=== PATIENT | male | born 1965 | race American Indian/Alaskan Native ===

== ENCOUNTER 2021-12-30 07:47 | Emergency (ER) | payer SELFPAY ==
[2021-12-30 08:12] LABS: Hematocrit 41.7 % (35.5-45.6); Hemoglobin 14.2 gm/dl (11.8-15.2); Mean Corpuscular HGB Conc 34 % (32-34); Mean Corpuscular Volume 101 fl (84-94); Platelet Count 179 K/mm3 (140-440); Red Blood Count 4.14 M/mm3 (3.65-5.03)
[2021-12-30 09:23] LABS: Calcium 9.6 mg/dL (8.4-10.2)
[2021-12-30] MEDS ORDERED: ONDANSETRON 4 MG/2 ML INJ IV ONE (10:17)
[2021-12-30] MEDS ORDERED: MORPHINE 4 MG/1 ML INJ IV ONE (10:17)
[2021-12-30] MEDS ORDERED: SODIUM CHLORIDE 0.9% 1000 ML 1,000 ML IV ONE (10:17)
[2021-12-30 10:34] LABS: Basophils % (Manual) 0 % (0.0-1.8); Total Cells Counted 100
[2021-12-30 10:35] LABS: Platelet Estimate Consistent w Auto; Target Cells 1+
--- NOTE | 2021-12-30 11:22 | Emergency Department Report ---
ED Abdominal Pain HPI - General Chief Complaint: Abdominal Pain Stated Complaint: ABD PAIN X DAYS Time Seen by Provider: 12/30/21 10:02 Source: patient Mode of arrival: Ambulatory Limitations: No Limitations - History of Present Illness Initial Comments: Patient is a 56-year-old male with history of chronic pancreatitis presenting with complaint of epigastric pain for the past 2 days. He reports associated nausea and vomiting. Denies fever or chills. Severity scale (0 -10): 5 - Related Data Allergies Allergy/AdvReac Type Severity Reaction Status Date / Time No Known Allergies Allergy Verified 12/30/21 07:55 ED Review of Systems ROS: Stated complaint: ABD PAIN X DAYS Other details as noted in HPI Constitutional: denies: chills, fever Respiratory: no symptoms reported Gastrointestinal: abdominal pain, nausea, vomiting Musculoskeletal: denies: back pain, joint swelling, arthralgia Skin: denies: rash, lesions Neurological: denies: headache, weakness, paresthesias Psychiatric: denies: anxiety, depression ED Physical Exam - General Limitations: No Limitations General appearance: alert, in no apparent distress - Head Head exam: Present: atraumatic, normocephalic - Neck Neck exam: Present: normal inspection - Respiratory Respiratory exam: Present: normal lung sounds bilaterally. Absent: respiratory distress - Cardiovascular Cardiovascular Exam: Present: regular rate, normal rhythm, normal heart sounds - GI/Abdominal GI/Abdominal exam: Present: soft. Absent: distended, tenderness - Rectal Rectal exam: Present: deferred - Neurological Exam Neurological exam: Present: alert, oriented X3 - Psychiatric Psychiatric exam: Present: normal affect, normal mood - Skin Skin exam: Present: warm, dry, intact, normal color ED Course Vital Signs 12/30/21 12/30/21 12/30/21 07:54 10:53 11:20 Temperature 97.4 F L 98.0 F Pulse Rate 94 H 74 88 Respiratory 18 18 18 Rate Blood Pressure 130/83 111/77 104/65 [Right] O2 Sat by Pulse 99 100 99 Oximetry ED Medical Decision Making - Lab Data Result diagrams: 12/30/21 08:01 12/30/21 08:01 - Medical Decision Making Lipase is unremarkable. Chemistry unremarkable except for glucose of 347. Patient states he has not taken his metformin in several days. He was given 1 L normal saline bolus along with IV Zofran and morphine. On reassessment his symptoms are resolved. He is stable for discharge home with return precautions. Critical care attestation.: If time is entered above; I have spent that time in minutes in the direct care of this critically ill patient, excluding procedure time. ED Disposition Clinical Impression: Epigastric pain, Nausea and vomiting Disposition: HOME / SELF CARE / HOMELESS Is pt being admited?: No Condition: Stable Instructions: Nausea and Vomiting, Adult, Abdominal Pain, Adult Time of Disposition: 12:11
[2021-12-30 11:45] LABS: Bilirubin,Urine NEG (Negative); Blood,Urine NEG (Negative); Color,Urine Yellow (Yellow); Protein,Urine <15 mg/dL mg/dL (Negative); Urobilinogen,Urine < 2.0 mg/dL (<2.0)
[2021-12-30 11:46] LABS: Mucus,Urine FEW /HPF; RBC,Urine < 1.0 /HPF (0.0-6.0)
[2021-12-30 14:09] VITALS: BP 120/66
--- NOTE | 2022-01-01 10:38 | Electrocardiograph Report ---
[facility] Test Date: 2021-12-30 Test Time: 10:33:11 Pat Name: JUHI PATEL Department: Room: Gender: M [place] Layer: [id number] : 1965 Requested By: EFFIE FOFANA Order Number: [id number] Reading MD: Jacob Up Measurements Intervals [place] Rate: 74 P: 28 AL: 178 QRS: 47 QRSD: 93 T: 46 QT: 398 QTc: 441 Interpretive Statements Sinus rhythm Low voltage, extremity leads No previous ECG available for comparison Electronically Signed On 01-01-2022 10:38:21 EDT by Jacob Up
== END 2021-12-30 14:09 | disposition home or self-care (01) ==
LOC: ED 07:47
DX: R10.13 Epigastric pain (principal); R11.2 Nausea with vomiting, unspecified
CPT/HCPCS: 36415; 80048; 81001; 83690; 85007; 85025; 93005; 96361; 96374; 96375; 99283; J2270; J2405; J7030

== ENCOUNTER 2022-02-20 08:59 | Emergency (ER) | payer BC ==
[2022-02-20 10:59] LABS: Basophils % (Auto) 1.3 % (0.0-1.8); Eosinophils % (Auto) 0.9 % (0.0-4.3); Hemoglobin 12.2 gm/dl (11.8-15.2); Lymphocytes # (Auto) 1.3 K/mm3 (1.2-5.4); Lymphocytes % (Auto) 37.9 % (13.4-35.0); Mean Corpuscular HGB Conc 34 % (32-34); Mean Corpuscular Volume 102 fl (84-94); Monocytes # (Auto) 0.3 K/mm3 (0.0-0.8); Monocytes % (Auto) 7.8 % (0.0-7.3); Platelet Count 165 K/mm3 (140-440); Red Blood Count 3.52 M/mm3 (3.65-5.03)
[2022-02-20 11:13] LABS: Alanine Aminotransferase 52 units/L (7-56); Albumin 3.3 g/dL (3.9-5); BUN/Creatinine Ratio 10; Blood Urea Nitrogen 13 mg/dL (9-20); Calcium 8.8 mg/dL (8.4-10.2); Hemolysis Index 20
[2022-02-20] MEDS ORDERED: SODIUM CHLORIDE 0.9% 1000 ML 1,000 ML IV ONE (14:25)
[2022-02-20] MEDS ORDERED: INSULIN REGULAR, HUMAN 100 UNITS/1 ML IV ONE (14:45)
[2022-02-20] MEDS ORDERED: MORPHINE 4 MG/1 ML INJ IV ONE (14:46)
[2022-02-20] MEDS ORDERED: ONDANSETRON 4 MG/2 ML INJ IV ONE (14:46)
--- NOTE | 2022-02-20 15:10 | Emergency Department Report ---
ED General Adult HPI - General Chief complaint: Dizziness Stated complaint: DIZZY/SORE THROAT Time Seen by Provider: 02/20/22 14:25 Source: patient Mode of arrival: Ambulatory Limitations: No Limitations - History of Present Illness Initial comments: 56-year-old male with a past medical history of HIV with undetectable viral load currently on Biktarvy, chronic pancreatitis, remote history of alcohol abuse, peptic ulcer, hernia, not insulin and diabetes, hypertension presents to the hospital concerns of anemia, weight loss, chronic pain, and decreased appetite. Patient follows with the [facility] for his infectious disease follow- up. Reports that his hemoglobin recently dropped from 17-12. Patient denies melena, hematochezia, or vomiting blood. He also complains of a 20 pound weight loss in 1 month, and decreased appetite and p.o. intake, and nausea without vomiting. Patient denies current alcohol abuse. He does smoke marijuana and cigarettes. He expresses concern that he might have cancer given weight loss, generalized symptoms, and family history of colon cancer. Pt has been noncompliant with his metformin 500 mg ER for the last 3 days because he felt bad. He does not have a primary care doctor. - Related Data Allergies Allergy/AdvReac Type Severity Reaction Status Date / Time No Known Allergies Allergy Verified 12/30/21 07:55 ED Review of Systems ROS: Stated complaint: DIZZY/SORE THROAT Other details as noted in HPI Comment: All other systems reviewed and negative ED Past Medical Hx - Past Medical History Hx Hypertension: Yes Hx Diabetes: Yes Additional medical history: pancreatitis, ulcer, hiatal hernia, DM, HTN, - Social History Smoking Status: Current Every Day Smoker Substance Use Type: Marijuana ED Physical Exam - General Limitations: No Limitations - Other Other exam information: , General: No acute distress, thin appearing Head: Atraumatic Eyes: normal appearance ENT: Moist mucous membranes Neck: Normal appearance, no midline tenderness Chest: Clear to auscultation bilaterally CV: Regular rate and rhythm Abdomen: Soft, normal bowel sounds, nontender, nondistended, no rebound or guarding Rectal: brown stool no gross bloods. external hemorrhoids noted Back: Normal inspection Extremity: Normal inspection, full range of motion Neuro: Alert O x 3, no facial asymmetry, speech clear, no gross motor sensory deficit Psych: Appropriate behavior Skin: No rash ED Course Vital Signs 02/20/22 09:35 Temperature 98.6 F Pulse Rate 92 H Respiratory 14 Rate Blood Pressure 117/79 O2 Sat by Pulse 98 Oximetry - Reevaluation(s) Reevaluation #1: 02/20/22 18:38 stool guaic was collected, signed, time, sent to lab. I called the lab several times. Stool guaiac status today uncollected. Patient does not have any gross bleeding or melena on examination and has a normal H&H therefore patient will be discharged to follow-up with GI without repeat collection 02/20/22 18:39 I as informed that repeat glucose was 215 ED Medical Decision Making - Lab Data Result diagrams: 02/20/22 10:36 02/20/22 10:36 Lab Results 02/20/22 02/20/22 02/20/22 Range/Units 10:36 10:36 10:36 WBC 3.5 L (4.5-11.0) K/mm3 RBC 3.52 L (3.65-5.03) M/mm3 Hgb 12.2 (11.8-15.2) gm/dl Hct 36.0 (35.5-45.6) % MCV 102 H (84-94) fl MCH 35 H (28-32) pg MCHC 34 (32-34) % RDW 14.0 (13.2-15.2) % Plt Count 165 (140-440) K/mm3 Lymph % (Auto) 37.9 H (13.4-35.0) % [place] % (Auto) 7.8 H (0.0-7.3) % Eos % (Auto) 0.9 (0.0-4.3) % Baso % (Auto) 1.3 (0.0-1.8) % Lymph # (Auto) 1.3 (1.2-5.4) K/mm3 [place] # (Auto) 0.3 (0.0-0.8) K/mm3 Eos # (Auto) 0.0 (0.0-0.4) K/mm3 Baso # (Auto) 0.0 (0.0-0.1) K/mm3 Seg Neutrophils % 52.1 (40.0-70.0) % Seg Neutrophils # 1.8 (1.8-7.7) K/mm3 VBG pH (7.320-7.420) Sodium 130 L (137-145) mmol/L Potassium 4.7 (3.6-5.0) mmol/L Chloride 93.9 L (98-107) mmol/L Carbon Dioxide 22 (22-30) mmol/L Anion Gap 19 mmol/L BUN 13 (9-20) mg/dL Creatinine 1.3 (0.8-1.3) mg/dL Estimated GFR > 60 ml/min BUN/Creatinine Ratio 10 % Glucose 410 H (75-100) mg/dL Ketones Quantitative (Negative) Calcium 8.8 (8.4-10.2) mg/dL Total Bilirubin 0.60 (0.1-1.2) mg/dL AST 68 H (5-40) units/L ALT 52 (7-56) units/L Alkaline Phosphatase 158 H (35-129) units/L Troponin T (0.00-0.029) ng/mL Total Protein 6.0 L (6.3-8.2) g/dL Albumin 3.3 L (3.9-5) g/dL Albumin/Globulin Ratio 1.2 % Lipase 20 (13-60) units/L Specific [place] (Man) (1.003-1.030) Ur Protein (Man) (Negative) mg/dL Ur Ketones (Man) (Negative) Urine Bilirubin (Man) (Negative) Urine WBC (Auto) (0.0-6.0) /HPF Urine RBC (Auto) (0.0-6.0) /HPF U Epithel Cells (Auto) (0-13.0) /HPF Urine RBC (Manual) (Negative) Urine Mucus /HPF Blood Type O POSITIVE 02/20/22 02/20/22 02/20/22 Range/Units 14:44 16:22 16:22 WBC (4.5-11.0) K/mm3 RBC (3.65-5.03) M/mm3 Hgb (11.8-15.2) gm/dl Hct (35.5-45.6) % MCV (84-94) fl MCH (28-32) pg MCHC (32-34) % RDW (13.2-15.2) % Plt Count (140-440) K/mm3 Lymph % (Auto) (13.4-35.0) % [place] % (Auto) (0.0-7.3) % Eos % (Auto) (0.0-4.3) % Baso % (Auto) (0.0-1.8) % Lymph # (Auto) (1.2-5.4) K/mm3 [place] # (Auto) (0.0-0.8) K/mm3 Eos # (Auto) (0.0-0.4) K/mm3 Baso # (Auto) (0.0-0.1) K/mm3 Seg Neutrophils % (40.0-70.0) % Seg Neutrophils # (1.8-7.7) K/mm3 VBG pH (7.320-7.420) Sodium (137-145) mmol/L Potassium (3.6-5.0) mmol/L Chloride (98-107) mmol/L Carbon Dioxide (22-30) mmol/L Anion Gap mmol/L BUN (9-20) mg/dL Creatinine (0.8-1.3) mg/dL Estimated GFR ml/min BUN/Creatinine Ratio % Glucose (75-100) mg/dL Ketones Quantitative Negative (Negative) Calcium (8.4-10.2) mg/dL Total Bilirubin (0.1-1.2) mg/dL AST (5-40) units/L ALT (7-56) units/L Alkaline Phosphatase (35-129) units/L Troponin T < 0.010 (0.00-0.029) ng/mL Total Protein (6.3-8.2) g/dL Albumin (3.9-5) g/dL Albumin/Globulin Ratio % Lipase (13-60) units/L Specific [place] (Man) 1.005 (1.003-1.030) Ur Protein (Man) 1+ (Negative) mg/dL Ur Ketones (Man) 15 (Negative) Urine Bilirubin (Man) Negative (Negative) Urine WBC (Auto) < 1.0 (0.0-6.0) /HPF Urine RBC (Auto) 1.0 (0.0-6.0) /HPF U Epithel Cells (Auto) < 1.0 (0-13.0) /HPF Urine RBC (Manual) Negative (Negative) Urine Mucus Few /HPF Blood Type 02/20/22 Range/Units 16:22 WBC (4.5-11.0) K/mm3 RBC (3.65-5.03) M/mm3 Hgb (11.8-15.2) gm/dl Hct (35.5-45.6) % MCV (84-94) fl MCH (28-32) pg MCHC (32-34) % RDW (13.2-15.2) % Plt Count (140-440) K/mm3 Lymph % (Auto) (13.4-35.0) % [place] % (Auto) (0.0-7.3) % Eos % (Auto) (0.0-4.3) % Baso % (Auto) (0.0-1.8) % Lymph # (Auto) (1.2-5.4) K/mm3 [place] # (Auto) (0.0-0.8) K/mm3 Eos # (Auto) (0.0-0.4) K/mm3 Baso # (Auto) (0.0-0.1) K/mm3 Seg Neutrophils % (40.0-70.0) % Seg Neutrophils # (1.8-7.7) K/mm3 VBG pH 7.344 (7.320-7.420) Sodium (137-145) mmol/L Potassium (3.6-5.0) mmol/L Chloride (98-107) mmol/L Carbon Dioxide (22-30) mmol/L Anion Gap mmol/L BUN (9-20) mg/dL Creatinine (0.8-1.3) mg/dL Estimated GFR ml/min BUN/Creatinine Ratio % Glucose (75-100) mg/dL Ketones Quantitative (Negative) Calcium (8.4-10.2) mg/dL Total Bilirubin (0.1-1.2) mg/dL AST (5-40) units/L ALT (7-56) units/L Alkaline Phosphatase (35-129) units/L Troponin T (0.00-0.029) ng/mL Total Protein (6.3-8.2) g/dL Albumin (3.9-5) g/dL Albumin/Globulin Ratio % Lipase (13-60) units/L Specific [place] (Man) (1.003-1.030) Ur Protein (Man) (Negative) mg/dL Ur Ketones (Man) (Negative) Urine Bilirubin (Man) (Negative) Urine WBC (Auto) (0.0-6.0) /HPF Urine RBC (Auto) (0.0-6.0) /HPF U Epithel Cells (Auto) (0-13.0) /HPF Urine RBC (Manual) (Negative) Urine Mucus /HPF Blood Type - Radiology Data Radiology results: report reviewed CHEST 2 VIEWS INDICATION / CLINICAL INFORMATION: smoker weight loss, hiv. COMPARISON: None available. FINDINGS: SUPPORT DEVICES: None. HEART / MEDIASTINUM: No significant abnormality. LUNGS / PLEURA: No significant pulmonary or pleural abnormality. No pneumothorax. Lungs are mildly hyperexpanded. ADDITIONAL FINDINGS: No significant additional findings. IMPRESSION: 1. No acute findings. CT abdomen pelvis w con INDICATION / CLINICAL INFORMATION: abd pain, weight loss. TECHNIQUE: Axial CT images were obtained through the abdomen and pelvis after 65 cc of Omnipaque [address] scans at this location are performed using CT dose reduction for ALARA by means of automated exposure control. COMPARISON: None available. FINDINGS: LOWER CHEST: No significant abnormality LIVER: Hepatic steatosis. GALLBLADDER/BILIARY TREE: Gallbladder is unremarkable. No significant biliary dilatation. PANCREAS: Extensive parenchymal calcifications throughout the pancreas with mild pancreatic duct prominence, compatible with sequela of chronic pancreatitis. No evidence of acute inflammation. SPLEEN: No significant abnormality ADRENALS: No significant abnormality RIGHT KIDNEY / URETER: No significant abnormality LEFT KIDNEY / URETER: No significant abnormality URINARY BLADDER: No significant abnormality REPRODUCTIVE ORGANS: No significant abnormality STOMACH / BOWEL: Small bowel is normal in caliber. The colon is unremarkable. The appendix is normal in caliber. LYMPH NODES: No significant adenopathy. VASCULATURE: Moderate atherosclerotic calcification without acute abnormality. OTHER: No free air, free fluid, or focal fluid collection is identified. SKELETAL SYSTEM: No acute osseous findings. Advanced right greater than left hip osteoarthritis. Advanced lower lumbar facet arthropathy with degenerative grade 1 anterolisthesis of L4 on L5. No aggressive osseous lesions. IMPRESSION: 1. No acute findings. No etiology identified for weight loss. 2. Sequela of chronic pancreatitis. No acute inflammation. 3. Other chronic and incidental findings as above. - Medical Decision Making 56-year old male presents to the hospital with complaints of weight loss, diarrhea, abdominal pain, concerns for cancer And sudden drop in hemoglobin. Patient does not have any GI findings of bleed on examination. Labs significant for hyperglycemia and elevated AST. No signs of DKA. Patient treated with i nsulin and normal saline with improvement in glucose. Patient needs follow-up with her primary care doctor and GI for further evaluation. pt declined alternative medicine for diabetes while his metformin is placed on hold for 2 days due to IV contrast administration. He was instructed to have a low-carb diet prior to days and drink plenty of water. Critical Care Time: No Critical care attestation.: If time is entered above; I have spent that time in minutes in the direct care of this critically ill patient, excluding procedure time. ED Disposition Clinical Impression: Chronic abdominal pain, Chronic pancreatitis, Weight loss, Hyperglycemia due to diabetes mellitus, Noncompliance with medication regimen, HIV (human immunodeficiency virus infection) Disposition: HOME / SELF CARE / HOMELESS Is pt being admited?: No Does the pt Need Aspirin: No Condition: Stable Instructions: Diabetes Mellitus Type 2 in Adults (ED), Chronic Pancreatitis Additional Instructions: Take your current as prescribed. stop metformin for 2 days as instructed. Follow-up with your doctor or doctor/clinic provided. Return if symptoms worsen as indicated by your discharge instructions. Referrals: IDA BEAR MD [Staff Physician] - 3-5 Days [facility] [Provider Group] - 3-5 Days JAMARCUS PATEL MD [Staff Physician] - 3-5 Days Time of Disposition: 18:46
--- NOTE | 2022-02-20 15:13 | XRay Report ---
CHEST 2 VIEWS INDICATION / CLINICAL INFORMATION: smoker weight loss, hiv. COMPARISON: None available. FINDINGS: SUPPORT DEVICES: None. HEART / MEDIASTINUM: No significant abnormality. LUNGS / PLEURA: No significant pulmonary or pleural abnormality. No pneumothorax. Lungs are mildly hy perexpanded. ADDITIONAL FINDINGS: No significant additional findings. IMPRESSION: 1. No acute findings. Signer Name: Niranjan Chang MD Signed: 02/20/2022 3:09 PM Workstation Name: [id number]
[2022-02-20 16:23] LABS: Mucus,Urine FEW /HPF
--- NOTE | 2022-02-20 16:37 | Cat Scan Report ---
CT abdomen pelvis w con INDICATION / CLINICAL INFORMATION: abd pain, weight loss. TECHNIQUE: Axial CT images were obtained through the abdomen and pelvis after 65 cc of Omnipaque [address] scans at this location are performed using CT dose reduction for ALARA by means of automated exposure control. COMPARISON: None available. FINDINGS: LOWER CHEST: No significant abnormality LIVER: Hepatic steatosis. GALLBLADDER/BILIARY TREE: Gallbladder is unremarkable. No significant biliary dilatation. PANCREAS: Extensive parenchymal calcifications throughout the pancreas with mild pancreatic duct prom inence, compatible with sequela of chronic pancreatitis. No evidence of acute inflammation. SPLEEN: No significant abnormality ADRENALS: No significant abnormality RIGHT KIDNEY / URETER: No significant abnormality LEFT KIDNEY / URETER: No significant abnormality URINARY BLADDER: No significant abnormality REPRODUCTIVE ORGANS: No significant abnormality STOMACH / BOWEL: Small bowel is normal in caliber. The colon is unremarkable. The appendix is normal in caliber. LYMPH NODES: No significant adenopathy. VASCULATURE: Moderate atherosclerotic calcification without acute abnormality. OTHER: No free air, free fluid, or focal fluid collection is identified. SKELETAL SYSTEM: No acute osseous findings. Advanced right greater than left hip osteoarthritis. Adva nced lower lumbar facet arthropathy with degenerative grade 1 anterolisthesis of L4 on L5. No aggress latrice osseous lesions. IMPRESSION: 1. No acute findings. No etiology identified for weight loss. 2. Sequela of chronic pancreatitis. No acute inflammation. 3. Other chronic and incidental findings as above. Signer Name: Shoaib Morin MD Signed: 02/20/2022 4:33 PM Workstation Name: [id number]
[2022-02-20 16:57] LABS: WBC,Urine < 1.0 /HPF (0.0-6.0)
[2022-02-20 19:10] VITALS: BP 152/86
--- NOTE | 2022-02-21 13:08 | Electrocardiograph Report ---
[facility] Test Date: 2022-02-20 Test Time: 09:45:07 Pat Name: JUHI PATEL Department: Room: Gender: M Lighting Engineer: TECH : 1965 Requested By: AMANDA TORREZ Order Number: [id number] Reading MD: Caroline Hawkins Measurements Intervals [place] Rate: 85 P: 58 [place]: 156 QRS: 68 QRSD: 88 T: 68 QT: 397 QTc: 472 Interpretive Statements Sinus rhythm Low voltage, extremity leads Compared to ECG 12/30/2021 10:33:11 No significant changes Electronically Signed On 02-21-2022 13:08:37 EDT by Caroline Hawkins
== END 2022-02-20 19:09 | disposition home or self-care (01) ==
LOC: ED 08:59
DX: G89.29 Other chronic pain (principal); R10.9 Unspecified abdominal pain; K85.90 Acute pancreatitis without necrosis or infection, unspecified; E11.65 Type 2 diabetes mellitus with hyperglycemia; Z91.14 Patient's other noncompliance with medication regimen; B20 Human immunodeficiency virus [HIV] disease; F17.200 Nicotine dependence, unspecified, uncomplicated; E11.9 Type 2 diabetes mellitus without complications
CPT/HCPCS: 36415; 71046; 74177; 80053; 81001; 82010; 82805; 83690; 84484; 85025; 86900; 86901; 93005; 96361; 96374; 96375; 99284; J2270; J2405; J7030; Q9967; J1815